=== PATIENT | female | born 1955 | race Caucasian/White ===

== ENCOUNTER 2017-09-27 14:08 | Outpatient (POV) | payer OTHER, SELFPAY | END 2017-09-27 16:00 | disposition home or self-care (01) | PROVIDERS: Visit Provider Podiatrist | DX: S92.335D Nondisplaced fracture of third metatarsal bone, left foot, subsequent encounter for fracture with routine healing (principal); S92.345D Nondisplaced fracture of fourth metatarsal bone, left foot, subsequent encounter for fracture with routine healing | CPT/HCPCS: 99213 ==

== ENCOUNTER → 2017-10-30 09:29 | Outpatient (CLI) | payer OTHER, SELFPAY ==
--- NOTE | 2017-10-30 09:43 | XR_ITS ---
XR foot LT min 3V HISTORY: ITS.REASON: LT. TARSOMETATARSAL LIGAMENT SPRAIN; NON-DISPLACED 3RD 4TH M ORDERING PHYSICIAN: Michelle Guido DPM PATIENT AGE: 62 years COMPARISON: None FINDINGS: Weightbearing views are performed. Nondisplaced fracture involving the base of the third metatarsal transverse in nature. Transverse fracture also present in the base of the fourth metatarsal with very minimal lateral displacement of the distal fracture fragment 1 to 2 mm unchanged. Fracture lines are somewhat less apparent suggesting early healing. The splint has been removed. IMPRESSION: Overall no change in the alignment of the transverse fractures of the base of the third fourth tarsals with early healing
--- NOTE | 2017-10-30 11:53 | XR_ITS ---
XR chest 2V HISTORY: ITS.REASON: HTN ORDERING PHYSICIAN: Michelle Guido DPM PATIENT AGE: 62 years COMPARISON: None available FINDINGS: There is borderline cardiomegaly without failure. There is increased density in the retrocardiac region consistent with a hiatal hernia which is larger when compared to 05/24/2009.. The lungs are clear without infiltrates, suspicious nodules, or pleural effusions. Degenerative change thoracic spine. IMPRESSION: 1. Borderline cardiomegaly without failure. 2. Medium-sized hiatal hernia
[2017-10-30 11:58] LABS: Basophils # 0.1 K/mm3 (0-0.2); Basophils % 0.7 % (0.1-2.0); Eosinophils # 0.4 K/mm3 (0.0-0.4); Eosinophils % 5.1 % (0.1-12.0); Hematocrit 42.2 % (37.0-47.0); Hemoglobin 13.7 g/dL (12.2-16.2); Lymphocytes # 1.7 K/mm3 (0.7-4.5); Lymphocytes % 24.2 K/mm3 (10-50); Mean Corpuscular HGB Conc 32.4 g/dL (31.8-35.4); Mean Corpuscular Hemoglobin 29.6 pg (27.0-31.2); Mean Corpuscular Volume 91.3 fl (81-99); Mean Platelet Volume 11.3 fl (7.4-10.4); Monocytes # 0.5 K/mm3 (0.1-1.0); Monocytes % 6.3 % (1.7-9.3); Neutrophils # 4.6 K/mm3 (1.8-7.8); Neutrophils % 63.7 % (37.0-80.0); Platelet Count 220 K/mm3 (142-424); Red Blood Count 4.62 M/mm3 (4.20-5.40); Red Cell Distribution Width 12.7 % (11.5-17.5); White Blood Count 7.2 K/mm3 (4.8-10.8)
[2017-10-30 13:56] LABS: Anion Gap 13.4 mEq/L (5-15); Blood Urea Nitrogen 15 mg/dL (7-18); Carbon Dioxide 30 mmol/L (21.0-32.0); Chloride 106 mmol/L (98-107); Creatinine,Serum 0.72 mg/dL (0.55-1.02); Estimated Glomerular Filt Rate 82 ml/min (>60); GFR (African American) 99 ML/MIN (>60); Glucose 92 mg/dL (74-106); Potassium 4.4 mmoL/L (3.5-5.1); Sodium 145 mmol/L (136-145)
[2017-11-02 17:11] LABS: Vitamin D 25 Hydroxy 21.8 ng/mL (30.0-100.0)
== END ==
PROVIDERS: PCP Podiatrist; Visit Provider Podiatrist
DX: S92.302A Fracture of unspecified metatarsal bone(s), left foot, initial encounter for closed fracture (principal); S93.622A Sprain of tarsometatarsal ligament of left foot, initial encounter
CPT/HCPCS: 36415; 71046; 73630; 80048; 82652; 85025; 93005

== ENCOUNTER 2017-11-02 07:06 | Day surgery (SDC) | payer OTHER, SELFPAY ==
[2017-11-02] VITALS (12 sets, daily range): BP systolic 128–152; BP diastolic 57–79; PULSE 64–72; RESP 12–20; TEMP 36.5–43; O2SAT 93–98; BMI 29.7
--- NOTE | 2017-11-02 08:34 | HMH.ANESCL ---
[facility] Anesthesia Checklist - Patient Identification Patient Identification: Arm Band, Verbal (Name & ) - Structural Data Admitted From: Home Planned Operative Procedure/s: repair left metatarsal fx 3 & 4 Consent for Planned Operative Procedure(s) Verified: Yes Verified Documents: Surgical Consent - NPO Status Verified Time NPO: 00:00 - Chart Verification Results Verified: CBC, BMP - Additional verifications Patient : No Anesthesia Reactions: No Hx Blood Transfusions: No Blood Transfusion Reaction: No - Cardiovascular Assessment Heart Sounds: S1 & S2 Pulse Strength: Baseline Pulse Rhythm: Regular Peripheral Edema: No - Airway Assessment C-Spine Mobility Assessed: Yes TMJ Mobility Assessed: Yes Dentition: Good Dentition - Neurological Assessment Level of Consciousness: Awake, Alert, Appropriate Hx Seizures: No Numbness or tingling in extremities: No - Anesthesia Plan Anesthesia Risk discussed: Yes ASA Class: III Anesthesia Type: MAC [facility] Anesthesia HX I have reviewed the patient's past medical history: Yes Medical History: Reports:: Hypertension Denies:: Cancer, Diabetes Mellitus Type 1, Diabetes Mellitus Type 2, MRSA, Seizures Other Medical History: Denies: Blood Transfusion Reaction Comment: cardiomegally, hld htn, bbb, anxiety, thyroid nodels, esophageal stricture Laterality Cases: Bilateral: Breast Biopsy Other Surgeries: No: Pacemaker Amputation: No Fractures: Yes (3rd and 4th metatarsal) Comment: lumpectomy x2 *Family Hx:: Coronary Artery Disease, Diabetes, Heart Attack, Hyperlipidemia, Hypertension, Kidney Disease, Stroke
--- NOTE | 2017-11-02 08:38 | P.PN_ITS ---
[facility] Anesthesia Checklist - Patient Identification Patient Identification: Arm Band, Verbal (Name & ) - Structural Data Admitted From: Home Planned Operative Procedure/s: repair left metatarsal fx 3 & 4 Consent for Planned Operative Procedure(s) Verified: Yes Verified Documents: Surgical Consent - NPO Status Verified Time NPO: 00:00 - Chart Verification Results Verified: CBC, BMP - Additional verifications Patient : No Anesthesia Reactions: No Hx Blood Transfusions: No Blood Transfusion Reaction: No - Cardiovascular Assessment Heart Sounds: S1 & S2 Pulse Strength: Baseline Pulse Rhythm: Regular Peripheral Edema: No - Airway Assessment C-Spine Mobility Assessed: Yes TMJ Mobility Assessed: Yes Dentition: Good Dentition - Neurological Assessment Level of Consciousness: Awake, Alert, Appropriate Hx Seizures: No Numbness or tingling in extremities: No - Anesthesia Plan Anesthesia Risk discussed: Yes ASA Class: III Anesthesia Type: MAC [facility] Anesthesia HX I have reviewed the patient's past medical history: Yes Medical History: Reports:: Hypertension Denies:: Cancer, Diabetes Mellitus Type 1, Diabetes Mellitus Type 2, MRSA, Seizures Other Medical History: Denies: Blood Transfusion Reaction Comment: cardiomegally, hld htn, bbb, anxiety, thyroid nodels, esophageal stricture Laterality Cases: Bilateral: Breast Biopsy Other Surgeries: No: Pacemaker Amputation: No Fractures: Yes (3rd and 4th metatarsal) Comment: lumpectomy x2 *Family Hx:: Coronary Artery Disease, Diabetes, Heart Attack, Hyperlipidemia, Hypertension, Kidney Disease, Stroke
--- NOTE | 2017-11-02 11:22 | SUR.OPER ---
PROCEDURE: ORIF 3RD AND 4TH METATARSALS LEFT FOOT
--- NOTE | 2017-11-02 12:16 | HMH.ANESI ---
[facility] Anesthesia Record Part I Intake, IV Amount: 1,400 Estimated blood loss (mL): 0 Urine output (mL): 0 Blood Pressure: 140/74 SaO2: 98 Pulse Rate: 66 Respiratory Rate: 12 Temperature: 98.2 F Patient is:: Awake, Drowsy Stable to PACU at:: 12:10
--- NOTE | 2017-11-02 12:17 | XR_ITS ---
XR foot LT min 3V HISTORY: Follow-up ORIF metatarsal fractures ITS.REASON: post-op ORDERING PHYSICIAN: Michelle Guido DPM PATIENT AGE: 62 years COMPARISON: None FINDINGS: 3 views are obtained through a splint demonstrate interval placement of a dorsal bone plates at the proximal aspect of the third and fourth metatarsal with good alignment of the fracture fragments.. Screw has been placed obliquely through the medial cuneiform into the base of the second metatarsal. There is good alignment of the second metatarsal tarsal joint. IMPRESSION: Interval ORIF of the fourth and third metatarsals. Medial Cuneiform and base of second metatarsal with good alignment
--- NOTE | 2017-11-02 12:18 | P.PN_ITS ---
[facility] Anesthesia Record Part II Discharge Time: 12:40 Destination: [facility] PACU nurse assessment reviewed?: Yes Patient Condition:: Good Anesthesia Complications:: None
--- NOTE | 2017-11-02 12:18 | HMH.ANESII ---
[facility] Anesthesia Record Part II Discharge Time: 12:40 [facility] nurse assessment reviewed?: Yes Patient Condition:: Good Anesthesia Complications:: None
--- NOTE | 2017-11-02 13:48 | FL_ITS ---
[place] fluoroscopy <1hr CLINICAL INDICATION: ITS.REASON: LT FOOT ORIF ORDERING PHYSICIAN: Michelle Guido DPM PATIENT AGE: 62 years Fluoroscopy time: 2 minutes and 38 seconds FINDINGS: Multiple images submitted with C-arm show interval dorsal bone plate placement at the proximal third and fourth metatarsal fractures as well as a screw placed from the medial aspect of the first cuneiform into the proximal aspect of the second metatarsal. IMPRESSION: Status post ORIF of the left foot as described above
--- NOTE | 2017-11-02 14:23 | SUR.PHASEII ---
PT HAD POLAR CARLTON AND LEG ELEVATED INSTRUCTED TO KEEP POLAR CARLTON ON AND LEG ELEVATED ABOVE HEART AT HOME ALICIA APPLIED TO RIGHT LEG AND INSTRUCTED TO KEEP TEDS ON UNTIL FOLLOW UP VISIT AND FURTHER INSTRUCTION FROM DR BIGGS. EXPLAINED USE AND REFILLING OF POLAR CARLTON. PT STATED SHE HAS CRUTCHES AND ROLLING CART AT HOME FOR AMBULATION AND NO WEIGHT BEARING OF LEFT LEG
--- NOTE | 2017-11-02 14:39 | HMH.OPNOTE ---
Date of procedure: 11/02/17 Pre-op Diagnosis:: Left LisFranc ligament sprain Left third metatarsal fracture Left fourth metatarsal fracture Post-op diagnosis:: same Procedure performed:: Open reduction internal fixation left Lisfranc ligament Open reduction internal fixation left third metatarsal Open reduction internal fixation left fourth metatarsal Surgeon:: Michelle Guido DPM [employer] OP[employer] INSTALLER:: Yaw Lawrence Anesthesia: GETA Estimated blood loss (mL): 20 Clinical Note:: Ms. Eddy is a 62 y/o female who presents for follow up of left foot fractures. She states she has been NWB in fiberglass cast and with the rolling the scooter. She does admit to tripped and falling on the left foot. Pain controlled. Patient presents with cast intact, but dirty and cracked at the bottom. DOI: 09/21/17. Patient states on 09/21/17 she was at home in the kitchen carrying dishes when she tripped over her cat. She did not fall down but did twist the foot. It hurts to bear weight immediately following the injury. She saw Dr. Bryan on 09/22/17. X-ray was obtained of the left foot and ankle. X-ray of the foot showed nondisplaced proximal third and fourth metatarsal fractures. He put her in a posterior splint. She has been NWB with crutches and a walker. She had an MRI which showed the proximal 3-4th met fractures, no complete LisFranc ligament tear. Reviewed and discussed the x-rays. Comparing the x-rays from 09/24/17 and 10/31/17, there is minimal healing and no change in overall alignment. We discussed causes for slow bone healing: non-smoker, non-diabetic, unsure of vitamin D level, age and bone density. Patients fiberglass cast was dirty and cracked on the bottom. We discussed risk and benefits of surgery vs conservative care. We discussed the risk of posttraumatic arthritis as well as refracturing and displacement of the tarsal metatarsals. 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 Indication: Conservative treatment discussed but not recommended. We discussed surgery. All risks and benefits were discussed including but not limited to: damage to blood vessels and nerves, bleeding, infection, wound complications, delayed in healing of soft tissue or bone, mal-union or non-union of bone, post-traumatic arthritis, need for further surgery, need for removal of implant, prolonged swelling of the extremity, prolonged pain, RSD/CRPS, DVT, and anesthetic complications. No guarantees were given. All questions fully answered. The patient verbalized understanding and agreed to proceed with surgery. Written consent was obtained. Discussed with Dr. Kc today. Medical clearance per Dr. Michelle. Necessary labs and pre-op testing ordered: CBC, BMP, EKG, CXR, vitamin D. CHERYL reviewed by myself. Pt was given a Rx for [place] 7.5/325 #28, Zofran 4mg #30, Motrin 800mg #60. Rx also given for Lovenox 40mg # 20 (she thinks her mother may have had a DVT), vitamin C 500mg daily, recommend daily vitamin D supplements. DME: has crutches and rolling knee scooter Plan surgery for: 11/02 for ORIF left 3-4th metatarsals, LisFranc ligament Operative findings:: Diastasis noted, some subtle widening of the Lisfranc ligament. 3-4th metatarsal fractures Operative note:: On this date and time patient was deemed an appropriate surgical candidate. With informed consent signed, the patient was taken to the operating theater after pre op regional femoral-saphenous nerve block. The patient was positioned supine. General anesthesia was induced. Tourniquet was applied to the right mid-calf at 225 mmHg. The right lower extremity was prepped and draped in normal sterile fashion. Left Open Reduction Internal Fixation LisFranc Joint (2nd met-medial cuneiform): Intraoperative fluoroscopy was utilized and the Lisfranc region was stressed under fluoroscopy. There was some diastases noted some subtle widening of the Lisfranc ligament. Attention was directed to the
--- NOTE | 2017-11-02 14:42 | P.OP_ITS ---
Date of procedure: 11/02/17 Pre-op Diagnosis:: Left LisFranc ligament sprain Left third metatarsal fracture Left fourth metatarsal fracture Post-op diagnosis:: same Procedure performed:: Open reduction internal fixation left Lisfranc ligament Open reduction internal fixation left third metatarsal Open reduction internal fixation left fourth metatarsal Surgeon:: Michelle Guido DPM CARDIAC CATH TECH:: Yaw Lawrence Anesthesia: GETA Estimated blood loss (mL): 20 Clinical Note:: Ms. Eddy is a 62 y/o female who presents for follow up of left foot fractures. She states she has been NWB in fiberglass cast and with the rolling the scooter. She does admit to tripped and falling on the left foot. Pain controlled. Patient presents with cast intact, but dirty and cracked at the bottom. DOI: 09/21/17. Patient states on 09/21/17 she was at home in the kitchen carrying dishes when she tripped over her cat. She did not fall down but did twist the foot. It hurts to bear weight immediately following the injury. She saw Dr. Bryan on 09/22/17. X-ray was obtained of the left foot and ankle. X-ray of the foot showed nondisplaced proximal third and fourth metatarsal fractures. He put her in a posterior splint. She has been NWB with crutches and a walker. She had an MRI which showed the proximal 3-4th met fractures, no complete LisFranc ligament tear. Reviewed and discussed the x-rays. Comparing the x-rays from 09/24/17 and 10/31/17 , there is minimal healing and no change in overall alignment. We discussed causes for slow bone healing: non-smoker, non-diabetic, unsure of vitamin D level, age and bone density. Patient?s fiberglass cast was dirty and cracked on the bottom. We discussed risk and benefits of surgery vs conservative care. We discussed the risk of posttraumatic arthritis as well as refracturing and displacement of the tarsal metatarsals. 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 Indication: Conservative treatment discussed but not recommended. We discussed surgery. All risks and benefits were discussed including but not limited to: damage to blood vessels and nerves, bleeding, infection, wound complications, delayed in healing of soft tissue or bone, mal-union or non-union of bone, post-traumatic arthritis, need for further surgery, need for removal of implant, prolonged swelling of the extremity, prolonged pain, RSD/CRPS, DVT, and anesthetic complications. No guarantees were given. All questions fully answered. The patient verbalized understanding and agreed to proceed with surgery. Written consent was obtained. Discussed with Dr. Kc today. Medical clearance per Dr. Michelle. Necessary labs and pre-op testing ordered: CBC, BMP, EKG, CXR, vitamin D. CHERYL reviewed by myself. Pt was given a Rx for [place] 7.5/325 #28, Zofran 4mg # 30, Motrin 800mg #60. Rx also given for Lovenox 40mg # 20 (she thinks her mother may have had a DVT), vitamin C 500mg daily, recommend daily vitamin D supplements. DME: has crutches and rolling knee scooter Plan surgery for: 11/02 for ORIF left 3-4th metatarsals, LisFranc ligament Operative findings:: Diastasis noted, some subtle widening of the Lisfranc ligament. 3-4th metatarsal fractures Operative note:: On this date and time patient was deemed an appropriate surgical candidate. With informed consent signed, the patient was taken to the operating theater after pre op regional femoral-saphenous nerve block. The patient was positioned supine. General anesthesia was induced. Tourniquet was applied to the right mid-calf at 225 mmHg. The right lower extremity was prepped and draped in normal sterile fashion. Left O
== END 2017-11-02 14:00 | disposition home or self-care (01) ==
PROVIDERS: PCP Family Medicine; Visit Provider Podiatrist
PROC: (CPT 28485; principal; 2017-11-02 08:45)
DX: S92.345A Nondisplaced fracture of fourth metatarsal bone, left foot, initial encounter for closed fracture (principal); S92.335A Nondisplaced fracture of third metatarsal bone, left foot, initial encounter for closed fracture; S93.692A Other sprain of left foot, initial encounter; S93.325A Dislocation of tarsometatarsal joint of left foot, initial encounter
CPT/HCPCS: 28485 ×2; 28615; 73620; 73630; 76000; 96374; C1713; C1762; C1776; J2405

== ENCOUNTER → 2017-11-19 10:19 | Outpatient (CLI) | payer OTHER, SELFPAY ==
--- NOTE | 2017-11-19 | XR_ITS ---
XR foot LT min 3V Ordering Physician: Michelle Guido DPM Patient Age: 62 years: Female HISTORY: ITS.REASON: WB..POST OP 2 WEEKS..FX LT FOOTR 2 weeks postop. Fracture TECHNIQUE: 3 views left foot COMPARISON :11/02/2017 left foot 3 view FINDINGS: 3 views are obtained through a posterior plaster splint. Again note the dorsal bone plate secured by multiple small screws seen along the proximal aspect of the third and fourth metatarsals. Stable position of the fixation elements. Good alignment at the fracture fragments.. Screw placedobliquely through the medial cuneiform continuing into the base of the second metatarsal appears. With good alignment of the second metatarsal tarsal joint. Stabilized relationship between first and second metatarsal IMPRESSION: . 1. Stable ORIF of the proximal fourth and third metatarsals. 2. Also Oblique Screws from Medial Cuneiform through the base of second metatarsal with stable position and good alignment. 3 Posterior plaster splint remains IMPRESSION:
== END ==
PROVIDERS: Visit Provider Podiatrist
DX: Z48.89 Encounter for other specified surgical aftercare (principal)
CPT/HCPCS: 73630

== ENCOUNTER → 2017-12-03 08:09 | Outpatient (CLI) | payer OTHER, SELFPAY | PROVIDERS: Visit Provider Podiatrist | DX: Z98.890 Other specified postprocedural states (principal); S93.622D Sprain of tarsometatarsal ligament of left foot, subsequent encounter; S92.335D Nondisplaced fracture of third metatarsal bone, left foot, subsequent encounter for fracture with routine healing ==

== ENCOUNTER → 2017-12-03 09:16 | Outpatient (CLI) | payer OTHER, SELFPAY ==
--- NOTE | 2017-12-03 | XR_ITS ---
XR foot wt bearing LT 2V HISTORY: Follow-up ORIF ORDERING PHYSICIAN: Michelle Guido DPM PATIENT AGE: 62 years COMPARISON: 11/19/2018 FINDINGS: The cast has been removed. There remains good alignment with bone plate over the proximal shaft of the fourth and fifth metatarsals and an oblique screw through the medial cuneiform into the base of the second metatarsal with good alignment. No evidence of widening of the base between the base of the first and second metatarsals fracture lines at the base of the third and fourth metatarsals are less apparent consistent with healing. IMPRESSION: Status post ORIF with good alignment with healing fractures at the base of the fourth and third metatarsals
== END ==
PROVIDERS: Visit Provider Podiatrist
DX: Z98.890 Other specified postprocedural states (principal)
CPT/HCPCS: 73620

== ENCOUNTER → 2017-12-17 09:27 | Outpatient (CLI) | payer OTHER, SELFPAY ==
--- NOTE | 2017-12-17 | XR_ITS ---
XR foot LT min 3V, Ordering Physician: Michelle Guido DPM Patient Age: 62 years: Female HISTORY: ITS.REASON: POST OP 6 WEEKS..PALTES AND SCREWS..PAIN AND SWELLING TECHNIQUE: Left foot 3 views weightbearing Right foot: 3 view weightbearing COMPARISON :11/19/2017 left foot ==LEFT FOOT 3 views weightbearing . Cast is been removed since prior study.. Again note the dorsal bone plate secured by multiple small screws seen along the proximal aspect of the third and fourth metatarsals. Stable position of thefixation elements. Good alignment at the fracture sites. Screw placedobliquely through the medial cuneiform continuing into the base of the second metatarsal. Stable position. Subtle lucency about the screw distal screw most likely stable.. With good alignment of the second metatarsaltarsal joint. & Stabilized relationship between first and second metatarsal. There is some subtle lucency at the lateral base and corner of the first metatarsal tarsal oblique view but less evident on the frontal projection. Most likely stable. Mild degenerative changes suspect the first tarsal-metatarsal joint IMPRESSION: .1. Stable ORIF of the proximal fourth and third metatarsals. 2. Also Oblique Screws from Medial Cuneiform through the base of second metatarsal with stable position and good alignment. Subtle minor observations as in text 3. Plaster splint/cast removed
== END ==
PROVIDERS: Visit Provider Podiatrist
DX: Z98.890 Other specified postprocedural states (principal)
CPT/HCPCS: 73630

== ENCOUNTER → 2018-01-21 09:04 | Outpatient (CLI) | payer OTHER, SELFPAY ==
--- NOTE | 2018-01-21 09:05 | XR_ITS ---
XR foot wt bearing LT 3V Ordering Physician: Michelle Guido DPM Patient Age: 62 years: Female HISTORY: Left foot pain. Pain with weightbearing. Follow-up fracture. TECHNIQUE 3 view left foot COMPARISON :12/17/2017. & December 03, 2017 FINDINGS Again note the dorsal bone platessecured by multiple small screws seen along theproximal aspect of the third and fourth metatarsals. Stable position of theseefixation elements. Good alignment at the fracture sites. Screw placedobliquely through the medial cuneiform continuing into the base of the second metatarsal. Stable position. Subtle lucency about the screw distal screw most likely stable.. With good alignment of the second metatarsaltarsal joint. Stabilized relationship between first and second metatarsal. There is some subtle lucency at the lateral base and corner of the first metatarsal tarsal oblique view but less evident on the frontal projection again noted. Stable to perhaps slightly more apparent Mild degenerative changes suspect the first tarsal-metatarsal joint IMPRESSION: .1. Stable ORIF of the proximal fourth and third metatarsals. 2. Also Oblique Screws from Medial Cuneiform through the base of second metatarsal with stable position and good alignment. 3. Question subtle lucency, subtle rarefaction along the lateral base the first metatarsal which appears similar to slightly more evident on today's oblique view. Warrants ongoing follow-up
== END ==
PROVIDERS: PCP Family Medicine; Visit Provider Podiatrist
DX: Z98.890 Other specified postprocedural states (principal); M79.672 Pain in left foot
CPT/HCPCS: 73630

== ENCOUNTER → 2019-11-17 09:09 | Outpatient (CLI) | payer MEDICARE, SELFPAY ==
--- NOTE | 2019-11-17 09:15 | MM_ITS ---
PROCEDURE: MM DIG SCREENING MAMM BI with 3D tomosynthesis CLINICAL INDICATION: SCREENING COMPARISON: BC MAMM DIAG BILAT DIG PNL from 10/29/2007 AB MAMM SCREEN BILAT DIG PNL from 02/14/2010 DMSB DIG MAMM-SCREEN MING from 11/29/2015 TECHNIQUE: Standard CC and MLO images were obtained. With 3D tomosynthesis. FINDINGS: There is average fibroglandular tissue. There is 5 mm nodular opacity in the lateral aspect of the right breast. This appears slightly more apparent but is probably not significantly changed. Recommend six-month follow-up to confirm stability. No malignant appearing mass or malignant-appearing microcalcification. There are scattered benign-appearing calcifications noted. IMPRESSION: BI-RAD Category: 3 Probably Benign Finding Short Term Follow-up FOLLOW-UP: 6M 6Month Follow-up (A letter has been sent to the patient regarding results of the study.) Dictated by: Hugo Perdue MD 11/17/2019 11:18 Electronically signed by Hugo Perdue MD in [place] 11/17/2019 11:18
== END ==
PROVIDERS: PCP Family Medicine; Visit Provider Family Medicine
DX: Z12.31 Encounter for screening mammogram for malignant neoplasm of breast (principal)
CPT/HCPCS: 77063; 77067

== ENCOUNTER → 2019-12-09 12:24 | Outpatient (POV) | payer MEDICARE, SELFPAY | PROVIDERS: PCP Family Medicine; Visit Provider Dermatology | DX: Z00.00 Encounter for general adult medical examination without abnormal findings (principal) ==

== ENCOUNTER → 2020-06-07 12:38 | Outpatient (CLI) | payer MEDICARE, SELFPAY ==
--- NOTE | 2020-06-07 12:50 | MM_ITS ---
PROCEDURE: MM DIG MAMM DX UNILAT RT CAD Digital Breast Tomosynthesis Included CLINICAL INDICATION: 6 MONTH F/U Follow-up nodule COMPARISON: MG AB MAMM SCREEN BILAT DIG PNL from 02/14/2010 MG DMSB DIG MAMM-SCREEN MING from 11/29/2015 MG MM DIG SCREENING MAMM BI W/CAD from 11/17/2019 US US BREAST RT COMPLETE from 06/07/2020 TECHNIQUE: Standard CC and MLO images and 3D Tomosynthesis was obtained. R2 CAD reviewed. FINDINGS: There is average fibroglandular tissue. There remains a benign-appearing nodular density in the lateral aspect of the right breast which does not appear significantly changed. This measures approximately 6 mm. No malignant appearing mass. There is a small cluster of microcalcifications in the lateral aspect of the right breast which is probably benign and probably not significantly changed. Suggest continued six-month follow-up. Ultrasound the right breast: 2 mm complex cystic area at 1 o'clock. No solid lesions evident. Recommend resuming screening in October 2020 IMPRESSION: Probably benign findings. Recommend continued six-month follow-up bilaterally to put patient back on schedule and to confirm 1 year stability of the nodule and calcifications on the right BI-RAD Category: 3 Probably Benign Finding Short Term Follow-up FOLLOW-UP: 6M 6Month Follow-up (A letter has been sent to the patient regarding results of the study.) Dictated by: Hugo Perdue MD 06/15/2020 10:41 Hugo Perdue MD in [place] 06/15/2020 10:41
== END ==
PROVIDERS: PCP Family Medicine; Visit Provider Family Medicine
DX: R92.8 Other abnormal and inconclusive findings on diagnostic imaging of breast (principal)
CPT/HCPCS: 76641; 77061; 77065; G0279

== ENCOUNTER → 2020-09-28 09:16 | Outpatient (POV) | payer MEDICARE, SELFPAY ==
[2020-09-28 10:55] LABS: Basophils # 0.1 K/mm3 (0-0.2); Eosinophils # 0.3 K/mm3 (0.0-0.4); Eosinophils % 3.6 % (0.1-12.0); Hematocrit 46.5 % (37.0-47.0); Hemoglobin 15.3 g/dL (12.2-16.2); Lymphocytes # 2.1 K/mm3 (0.7-4.5); Lymphocytes % 26.1 % (10-50); Mean Corpuscular Hemoglobin 30.8 pg (27.0-31.2); Mean Corpuscular Volume 93.4 fl (81-99); Mean Platelet Volume 11.5 fl (7.4-10.4); Monocytes # 0.5 K/mm3 (0.1-1.0); Monocytes % 5.9 % (1.7-9.3); Neutrophils % 63.3 % (37.0-80.0); Platelet Count 220 K/mm3 (142-424); Red Blood Count 4.97 M/mm3 (4.20-5.40); Red Cell Distribution Width 13.4 % (11.5-17.5); White Blood Count 7.8 K/mm3 (4.8-10.8)
[2020-09-28 11:31] LABS: Chloride 101 mmol/L (98-107); Potassium 3.7 mmoL/L (3.5-5.1); Sodium 138 mmol/L (136-145)
[2020-09-28 11:34] LABS: Alanine Aminotransferase 36 U/L (12-78); Albumin Level 4.7 g/dl (3.5-5.0); Albumin/Globulin Ratio 1.7 (1.1-1.8); Alkaline Phosphatase 90 U/L (38-126); Anion Gap 9.7 mEq/L (5-15); Aspartate Amino Transferase 35 U/L (14-36); Bilirubin,Total 0.8 mg/dl (0.2-1.3); Blood Urea Nitrogen 20 mg/dl (7-17); Calcium 9.4 mg/dl (8.4-10.2); Carbon Dioxide 31 mmol/L (22.0-30.0); Estimated Glomerular Filt Rate 62 ml/min (>60); GFR (African American) 76 ML/MIN (>60); Globulin 2.8 g/dL (1.3-3.2); Glucose 98 mg/dl (74-100); Total Protein,Serum 7.5 g/dl (6.3-8.2)
[2020-09-29 13:18] LABS: Hep A Ab, IgM Negative (Negative); Hepatitis B Core Antibody IgM Negative (Negative); Hepatitis B Surface Antigen Negative (Negative)
[2020-09-29 15:47] LABS: Hepatitis C Antibody <0.1 s/co ratio (0.0-0.9)
[2020-10-01 09:43] LABS: QuantiFERON-TB Gold Plus Negative (Negative)
== END ==
PROVIDERS: PCP Family Medicine; Visit Provider Dermatology
DX: Z79.899 Other long term (current) drug therapy; Z11.1 Encounter for screening for respiratory tuberculosis; Z01.89 Encounter for other specified special examinations; L40.0 Psoriasis vulgaris
CPT/HCPCS: 36415; 80053; 80074; 85025; 86480

== ENCOUNTER → 2021-02-07 10:20 | Outpatient (CLI) | payer MEDICARE, SELFPAY ==
--- NOTE | 2021-02-07 10:29 | MM_ITS ---
PROCEDURE: MM DIG SCREENING MAMM BI W/CAD Digital Breast Tomosynthesis Included CLINICAL INDICATION: SCREENING There is a history of breast cancer in the patient's paternal cousin. There has been a previous biopsy on each breast for benign disease. COMPARISON: MG DMSB DIG MAMM-SCREEN MING from 11/29/2015 MG MM DIG SCREENING MAMM BI W/CAD from 11/17/2019 MG MM DIG MAMM DX UNILAT RT CAD from 06/07/2020 TECHNIQUE: Standard CC and MLO images and 3D Tomosynthesis was obtained. R2 CAD reviewed. FINDINGS: Moderate diffuse fibroglandular densities seen throughout both breast the findings are bilateral and symmetrical. There is a mole marker each breast. No suspicious lesion either breast and no suspicious microcalcifications IMPRESSION: Fibrofatty parenchyma with no suspicious lesions seen BI-RAD Category: 2 Benign Finding(s) FOLLOW-UP: 1YR 1 Year Follow-up (A letter has been sent to the patient regarding results of the study.) Dictated by: Dr. Helder Keith MD 02/08/2021 08:06 Dr. Helder Keith MD in [place] 02/08/2021 08:06
== END ==
PROVIDERS: PCP Family Medicine; Visit Provider Family Medicine
DX: Z12.31 Encounter for screening mammogram for malignant neoplasm of breast (principal)
CPT/HCPCS: 77063; 77067

== ENCOUNTER → 2021-09-26 11:33 | Outpatient (CLI) | payer MEDICARE, SELFPAY ==
[2021-09-26 13:02] LABS: Adenovirus,PCR Not Detected (NotDetected); Bordetella Pertussis Not Detected (NotDetected); Chlamydophila Pneumoniae, PCR Not Detected (NotDetected); Coronavirus 229E Not Detected (NotDetected); Coronavirus NL63 Not Detected (NotDetected); Coronavirus OC43 Not Detected (NotDetected); Coronovirus HKU1,PCR Not Detected (NotDetected); Human Metapneumovirus Not Detected (NotDetected); Influenza A, PCR Not Detected (NotDetected); Influenza AH1, 2009 Not Detected (NotDetected); Influenza AH1, PCR Not Detected (NotDetected); Influenza AH3,PCR Not Detected (NotDetected); Influenza B, PCR Not Detected (NotDetected); Mycoplasma Pneumoniae, PCR Not Detected (NotDetected); Parainfluenza 1, PCR Not Detected (NotDetected); Parainfluenza 2, PCR Not Detected (NotDetected); Parainfluenza 3, PCR Not Detected (NotDetected); Parainfluenza 4, PCR Not Detected (NotDetected); Respiratory Syncytial Virus Not Detected (NotDetected); Rhinovirus/Enterovirus Not Detected (NotDetected)
[2021-09-26 13:49] LABS: Eosinophils % 0.5 % (0.1-12.0); Hematocrit 41.1 % (37.0-47.0); Hemoglobin 13.8 g/dL (12.2-16.2); Lymphocytes # 1.1 K/mm3 (0.7-4.5); Lymphocytes % 26.1 % (10-50); Mean Corpuscular HGB Conc 33.6 g/dL (31.8-35.4); Mean Corpuscular Hemoglobin 31.1 pg (27.0-31.2); Mean Corpuscular Volume 92.4 fl (81-99); Mean Platelet Volume 12.4 fl (7.4-10.4); Monocytes # 0.5 K/mm3 (0.1-1.0); Monocytes % 11.4 % (1.7-9.3); Neutrophils # 2.7 K/mm3 (1.8-7.8); Neutrophils % 61.1 % (37.0-80.0); Platelet Count 172 K/mm3 (142-424); Red Blood Count 4.44 M/mm3 (4.20-5.40); Red Cell Distribution Width 13.1 % (11.5-17.5); White Blood Count 4.4 K/mm3 (4.8-10.8)
[2021-09-26 14:46] LABS: Coronavirus 19, PCR Detected (NotDetected)
== END ==
PROVIDERS: PCP Family Medicine; Visit Provider Nurse Practitioner Family
DX: U07.1 COVID-19 (principal)
CPT/HCPCS: 36415; 85025; 87581; 87632; 87798; C9803; U0003; U0005

== ENCOUNTER 2021-09-30 07:50 | Outpatient (CLI) | payer MEDICARE, SELFPAY ==
[2021-09-30] VITALS (8 sets, daily range): BP systolic 103–119; BP diastolic 50–62; PULSE 67–75; RESP 16; TEMP 36.8–36.9; O2SAT 91–95
== END 2021-09-30 10:25 | disposition home or self-care (01) ==
LOC: INF 07:53
PROVIDERS: PCP Family Medicine; Visit Provider Nurse Practitioner Family
DX: U07.1 COVID-19 (principal); Z23 Encounter for immunization
CPT/HCPCS: 96365

== ENCOUNTER → 2022-04-04 09:26 | Outpatient (CLI) | payer MEDICARE, SELFPAY ==
--- NOTE | 2022-04-04 09:32 | MM_ITS ---
PROCEDURE INFORMATION: Exam: MG Bilateral Screening 3D Mammography Exam date and time: 04/04/2022 9:49 AM Age: 66 years old Clinical indication: Screening examination TECHNIQUE: Imaging protocol: Bilateral Screening tomosynthesis and 2D mammography including computer-aided detection (CAD) when performed. COMPARISON: 1. MG MM DIG SCREENING MAMM BI W/CAD 02/07/2021 10:43 AM 2. MG MM DIG MAMM DX UNILAT RT CAD 06/07/2020 1:06 PM FINDINGS: MAMMOGRAPHY: Breast composition: There are scattered areas of fibroglandular density. Mass: None. Architectural distortion: None. Calcifications: No suspicious calcifications. Asymmetric density: None. Skin thickening: None. Axillary adenopathy: None. IMPRESSION: No mammographic evidence of malignancy. Annual screening is recommended unless otherwise clinically indicated. ASSESSMENT: BI-RADS Category 1: Negative
== END ==
PROVIDERS: PCP Family Medicine; Visit Provider Family Medicine
DX: Z12.31 Encounter for screening mammogram for malignant neoplasm of breast (principal)
CPT/HCPCS: 77063; 77067

== ENCOUNTER → 2023-05-29 08:07 | Outpatient (CLI) | payer MEDICARE, SELFPAY ==
--- NOTE | 2023-05-29 08:15 | MM_ITS ---
PROCEDURE INFORMATION: Exam: MG Bilateral Screening 3D Mammography Exam date and time: 05/29/2023 8:16 AM Age: 67 years old Clinical indication: Screening mammogram. Family history of breast cancer TECHNIQUE: Imaging protocol: Bilateral Screening tomosynthesis and 2D mammography including computer-aided detection (CAD) when performed. COMPARISON: 1. MG MM DIG SCREENING MAMM BI W/CAD 04/04/2022 9:49 AM 2. MG MM DIG SCREENING MAMM BI W/CAD 02/07/2021 10:43 AM 3. MG MM DIG MAMM DX UNILAT RT CAD 06/07/2020 1:06 PM 4. MG MM DIG SCREENING MAMM BI W/CAD 11/17/2019 9:50 AM FINDINGS: MAMMOGRAPHY: Breast composition: There are scattered areas of fibroglandular density. Mass: None. Architectural distortion: No new or suspicious architectural distortion. Calcifications: No new or suspicious calcifications are present Asymmetric density: No new or suspicious asymmetric density is present Skin thickening: None. Axillary adenopathy: None. IMPRESSION: No mammographic evidence of malignancy. Recommend annual screening mammography unless otherwise clinically indicated. ASSESSMENT: BI-RADS category 1: Negative
--- NOTE | 2023-05-29 08:50 | XR_ITS ---
FINAL REPORT TECHNIQUE: Bone mineral density was calculated of the lumbar spine and hip. CLINICAL HISTORY: . post menopausal screening, osteopenia FINDINGS: Using L1-4, the bone mineral density of the spine is 1.104 g/cm2, corresponding to T-score of 0.5. Using the left hip, the bone mineral density of the femoral neck is 0.764 g/cm2, corresponding to a T-score of -1.5. Using the right hip, the bone mineral density of the femoral neck is 0.734 g/cm2, corresponding to a T-score of -1.0. NOTE: T-score: Standard deviation compared with peak bone mass of young adult mean. *Following the recommendations of the International Society of Bone densitometry, classification of hip BMD is based on the lower of two T-scores; total hip or femoral neck. IMPRESSION: Diminished bone mineral density consistent with low bone density. FRAX data reports fracture risk of 14% for major osteoporotic fracture and 2% for hip fracture. Reviewed, Interpreted and Dictated by Nikko Angulo III, MD Transcribed by Christin Kiran Authenticated and [facility]
== END ==
PROVIDERS: PCP Family Medicine; Visit Provider Family Medicine
DX: Z12.31 Encounter for screening mammogram for malignant neoplasm of breast (principal); M85.89 Other specified disorders of bone density and structure, multiple sites; Z78.0 Asymptomatic menopausal state
CPT/HCPCS: 77063; 77067; 77080

== ENCOUNTER 2024-07-23 10:04 | Outpatient (CLI) | payer MEDICARE, SELFPAY ==
--- NOTE | 2024-07-23 10:06 | MM_ITS ---
PROCEDURE INFORMATION: Exam: MG Bilateral Screening 3D Mammography Exam date and time: 07/23/2024 9:52 AM Age: 68 years old Clinical indication: Screening examination TECHNIQUE: Imaging protocol: Bilateral Screening tomosynthesis and 2D mammography including computer-aided detection (CAD) when performed. COMPARISON: 1. MG MM DIG SCREENING MAMM BI W/CAD 05/29/2023 8:16 AM 2. MG MM DIG SCREENING MAMM BI W/CAD 04/04/2022 9:49 AM FINDINGS: MAMMOGRAPHY: Breast composition: There are scattered areas of fibroglandular density. Mass: No suspicious masses. Architectural distortion: None. Calcifications: No suspicious calcifications. Asymmetric density: None. Skin thickening: None. Axillary adenopathy: None. IMPRESSION: No mammographic evidence of malignancy. Annual screening is recommended unless otherwise clinically indicated. ASSESSMENT: BI-RADS Category 1: Negative.
== END 2024-07-23 23:59 | disposition home or self-care (01) ==
LOC: RAD 10:04
PROVIDERS: PCP Family Medicine; Visit Provider Family Medicine
DX: Z12.31 Encounter for screening mammogram for malignant neoplasm of breast (principal)
CPT/HCPCS: 77063; 77067

== ENCOUNTER 2024-09-23 09:10 | Outpatient (POV) | payer MEDICARE, SELFPAY | END 2024-09-23 23:59 | disposition home or self-care (01) | LOC: SC 09-24 06:54 | PROVIDERS: Visit Provider Dermatology | DX: Z00.00 Encounter for general adult medical examination without abnormal findings (principal) ==

== ENCOUNTER 2024-12-30 10:23 | Outpatient (CLI) | payer MEDICARE, SELFPAY ==
--- NOTE | 2024-12-30 | CA_ITS ---
APPROVED REPORT Exam: Exercise Treadmill Technologist: Collette Diaz Ht: 5 ft 6 in Wt: 192 lbs BSA: 1.97 m2 HR: 74 bpm BP: 146/69 mmHg Stress Test Details Test: Exercise stress testing was performed using a Nahtaniel protocol. HR Resting HR: 74 bpm Max Heart Rate (APMHR): 149.934014 bpm Max HR Achieved: 104 bpm Target HR (85% APMHR): 126.173044 bpm % of APMHR: 69.80 Recovery HR: 80 bpm BP Resting BP: 146.0/69.0 mmHg Max BP: 158.0/70.0 mmHg Recovery BP: 142.0/69.0 mmHg ECG Stress ECG Conclusion Symptoms: Fatigue, dyspnea Arrhythmias/Ectopy: - ST-T Changes: 1-2 mm depression Conclusion: Abnormal EKG response to exercise. Electronically signed by : Nancy Chavez MD 01/04/2025 20:46:26
== END 2024-12-30 23:59 | disposition home or self-care (01) ==
LOC: RT 10:23
PROVIDERS: PCP Family Medicine; Visit Provider Family Medicine
DX: R07.89 Other chest pain (principal); R94.39 Abnormal result of other cardiovascular function study
CPT/HCPCS: 93017; 93018

== ENCOUNTER 2025-02-10 11:12 | Outpatient (CLI) | payer MEDICARE, SELFPAY ==
[2025-02-10 11:30] VITALS: BP 131/68; PULSE 76; RESP 17; TEMP 36.6; O2SAT 98
[2025-02-10 11:51] VITALS: BMI 30.9
[2025-02-10] MEDS: METOPROLOL TARTRATE 25MG TABLET 50 MG (11:53)
[2025-02-10] MEDS: IVABRADINE HCL 7.5MG TABLET 15 MG PO (11:53)
[2025-02-10 12:02] LABS: Anion Gap 10.6 mEq/L (5-15); Blood Urea Nitrogen 30 mg/dl (7-17); Carbon Dioxide 25 mmol/L (22.0-30.0); Chloride 109 mmol/L (98-107); Creatinine Clearance Estimated 51 mL/min (50-200); Estimated Glomerular Filt Rate 37 ml/min (>60); GFR (African American) 45 ML/MIN (>60); Glucose 105 mg/dl (74-100); Potassium 4.6 mmoL/L (3.5-5.1); Sodium 140 mmol/L (136-145)
[2025-02-10] MEDS: LACTATED RINGERS 1000ML 1,000 ML 999 ML IV (12:30)
--- NOTE | 2025-02-10 13:00 | CT_ITS ---
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 A noncontrast coronary calcium scan was performed. A CT attenuation threshold of 130 Hounsfield units (HU) was used for the detection of calcium in contiguous voxels of 1 sq mm in area to be counted as individual lesions. Bolus tracking in the ascending aorta with a threshold of 180 HU was performed. Immediately afterwards, ECG synchronized cardiac CT was then performed from the cardiac base to apex using retrospective gating with ECG tube current modulation. A total of 85 mL of Isovue 370 mg/mL contrast medium was administered at 5 mL/sec followed by a saline flush using a biphasic injection protocol. A tube voltage of 120 KVp was used. The patient received the following medications prior to the cardiac CT. 50 mg of oral metoprolol 5 mg of intravenous metoprolol 15 mg of oral ivabradine 0.4 mg of sublingual nitroglycerin The average heart rate at the time of acquisition was 133 bpm and regular. Image Reconstruction Transaxial images were reconstructed at 0.67 mm slide thickness. Data was reviewed interactively on an advanced workstation capable of 2 and 3-dimensional displays in all conventional reconstruction formats, including multiplanar reformations, maximum intensity projections, curved multiplanar reformations, and volume rendered reconstructions. When applicable, selected routine images describing the relevant coronary anatomy and pathology were saved and sent to PACS. Complications None Technical Quality Overall image quality was inadequate and non-diagnostic in the setting of elevated HR. Coronary artery opacification was inadequate Total DLP (Dose-Length Product) is 2269.4 mGy-cm. The reported value represents the total of one or more individual components during the CT acquisition of this date and at this time, and as such, the same value may appear in more than one CT report depending on the interpreting/reporting physicians. COMPARISON None FINDINGS CT Coronary Calcium Scoring LMA (Left Main Artery) = 0 LAD (Left Anterior Descending) = 0 LCX (Left Coronary Circumflex) = 0 RCA (Right Coronary Artery) = 0 Total Calcium Score = 0 using the AJ-130 method. The interpretation of the calcium heart score is based on the following continuum*: 0 = no calcified plaque detected (risk of coronary artery disease is very low ??? less than 5%) 1-10 = calcium detected in extremely minimal levels (risk of coronary diseases is still low ??? less than 10%) 11-100 = mild levels of plaque detected with certainty (mild or minimal narrowing of heart arteries is likely) 101-400 = definite,at least moderate levels of plaque detected (relatively high risk of a heart attack within 3-5 years) >401-999 = extensive levels of plaque detected (high risk of heart attack, high levels of vascular disease are present, high likelihood of at least one significant coronary narrowing) *The calcium heart score quantifies the burden of coronary calcification/plaque in the coronary arteries. The calcium heart score is not able to evaluate the presence or burden of non-calcified (i.e. soft) plaque. There is no identifiable calcification in the aortic valve, mitral annulus or mitral valve, pericardium, or myocardium. Coronary CT Angiography The coronary arterial system is right dominant. Quantitative Stenosis Grading: Left Main (LM): The left main originates normally from the left sinus of Valsalva. The LM bifurcates into the left anterior descending artery and left circumflex artery. Significant motion is noted in the LM segment, with difficult to visualize the vessel lumen. Grossly, no obvious plaque is noted. Left Anterior Descending (LAD) and Diagonal Branches: The LAD gives off an indeterminate number of diagonal branch(es). Significant motion is noted in the LAD segment, with difficult to visualize the vessel lumen. Grossly, no obvious plaque is noted. Left Circumflex (LCX) and Obtuse Marginals (OM): The LCX gives off an indeterminate number of obtuse Marginal (OM) branch(es). Significant motion is noted in the LCX segment, with difficult to visualize the vessel lumen. Grossly, no obvious plaque is noted. Right Coronary Artery (RCA): The RCA originates normally from the right sinus of Valsalva. The RCA gives off a posterior descending artery (PDA) and posterolateral (PL) branches. The RCA is not well-visualized in the study due to significant motion. Non-Coronary Cardiac Findings: Analysis of the left ventricular (LV) structure and function was performed after 3-D reconstruction of the LV from axial images, with user-corrected automatic contouring for assessment of LV volumes and user-defined reconstruction from oblique planes for measurement of 3-D cardiac structure and function. -The left ventricle systolic function is indeterminate. -There is no left atrial appendage filling defect. Two right pulmonary veins and two left pulmonary veins drain normally into the left atrium. -No pericardial thickening or calcification. -Central and branch pulmonary arteries in the [id number] are unremarkable. -Thoracic aorta within the visualized thoracic aortic-branches in the [id number] is unremarkable. Extracardiac Structures -Large hiatal hernia is incidentally noted. IMPRESSION -Inadequate and suboptimal study in the setting of elevated HR at the time of image acquisition (HR 133 bpm). This study is to be considered nondiagnostic in the setting of inability to visualize multiple vascular territories. - Absence of coronary calcification with an Agatston score = 0 using the AJ-130 method. -Difficult to visualize multiple vascular territories in the study. Grossly, no evidence of significant flow-limiting atherosclerosis of the coronary arteries in the visualized segments. If clinically indicated and feasible, alternative testing is suggested to evaluate for ischemia. -CAD-RADS indeterminate. Management recommendations per ACC/AHA guidelines*, as clinically appropriate. -Large hiatal hernia is incidentally noted. *Recommendations: CAD RADS 0: Reassurance. Consider non-atherosclerotic causes of chest pain. CAD RADS 1: Consider non-atherosclerotic causes of chest pain. Consider preventive therapy and risk factor modification. CAD RADS 2: Consider non-atherosclerotic causes of chest pain. Consider preventive therapy and risk factor modification, particularly for patients with nonobstructive plaque in multiple segments. CAD RADS 3: Consider further functional testing. Consider symptom-guided anti-ischemic and preventive pharmacotherapy as well as risk factor modification per published guideline statements. CAD RADS 4A: Consider further functional testing or invasive coronary angiography with revascularization per published guideline statements. Consider symptom-guided anti-ischemic and preventive pharmacotherapy as well as risk factor modification per published guideline statements. CAD RADS 4B: Invasive coronary angiography recommended with revascularization per published guideline statements. Consider symptom-guided anti-ischemic and preventive pharmacotherapy as well as risk factor modification per published guideline statements. CAD RADS 5: Consider invasive angiography and/or viability assessment with revascularization per published guideline statements. Consider symptom-guided anti-ischemic and preventive pharmacotherapy as well as risk factor modification per published guideline statements. CRITICAL RESULT None COMMUNICATION Per this written report The coronary and cardiac findings of this CCTA were reviewed, reported, and signed by Tony Chavez MD (Sheetmetal Patternmaker) Conclusion Electronically signed by : Nancy Chavez MD 02/11/2025 13:19:18
[2025-02-10] MEDS: NITROGLYCERIN 0.4MG SL TABLET 0.4 MG SL (13:15)
[2025-02-10 13:20] VITALS: BP 150/81; PULSE 73; O2SAT 99
[2025-02-10] MEDS: METOPROLOL TARTRATE 5MG/5ML VIAL 5 MG IV (13:20)
[2025-02-10 13:30] VITALS: BP 137/70; PULSE 73; O2SAT 98
[2025-02-10] MEDS: SODIUM CHLORIDE 0.9% 10ML SYR (RAD ONLY) 10 ML IV (13:32)
[2025-02-10] MEDS: IOPAMIDOL-370 (76%);100ML BOTTLE 85 ML IV (13:32)
[2025-02-10] MEDS: 0.9 % SODIUM CHLORIDE 50 ML VIAL IV (13:32)
[2025-02-10 13:40] VITALS: BP 133/68; PULSE 73; O2SAT 98
== END 2025-02-10 13:54 | disposition home or self-care (01) ==
LOC: RAD 11:13
PROVIDERS: PCP Family Medicine; Visit Provider Nurse Practitioner Family
DX: R94.30 Abnormal result of cardiovascular function study, unspecified (principal); Z82.49 Family history of ischemic heart disease and other diseases of the circulatory system; R94.31 Abnormal electrocardiogram [ECG] [EKG]
CPT/HCPCS: 75574; 80048; J7120; Q9967

== ENCOUNTER 2025-07-28 09:41 | Outpatient (CLI) | payer MEDICARE, SELFPAY ==
--- OUTSIDE RECORDS SUMMARY | 2024-09-15 06:00 | XMS_ITS ---
Author Organization [facility] Address [address] [facility] [address] [place], [place] [id number] Care Team Providers Care Refresh Technician Name Role Phone Kevin Grijalva Primary Care Provider Allergies No Known Allergies Results Component Value Reference Range Notes P-Comprehensive Metabolic Pa baljinder (CMP) Reviewed date:09/17/2024 10:04:26 AM Interpretation:satisfactory Performing Lab: Notes/Report: Test performed by [facility] [address] [place], [place] [address] [place] , [address], [place] [address] Dixon Cruz MD, Pantograph Transferrer CLIA: [id number] Sodium 143 135-145 mmol/L Potassium 4.5 3.5-5.3 mmol/L Chloride 109 97-108 mmol/L CO2 24 22-32 mmol/L Glucose 98 65-99 mg/dL BUN 19 8-23 mg/dL Creatinine 0.99 0.50-1.00 mg/dL Calcium 9.0 8.6-10.4 mg/dL eGFR by Creatinine 61 >59 mL/min/1.73m2 Protein 6.5 6.0-8.3 g/dL Albumin 4.4 3.5-5.3 g/dL Alkaline Phosphatase 86 35-121 IU/L ALT (SGPT) 10 <5-47 IU/L AST (SGOT) 13 <5-40 IU/L Bilirubin, Total 0.5 <0.2-1.2 mg/dL A/G Ratio 2.1 1.1-2.5 P-Lipid Panel Reviewed date:09/17/2024 10:04:26 AM Interpretation:Normal Performing Lab: Notes/Report: Test performed by [facility] [address] [facility] [address], [place] [address] Dixon Cruz MD, Pantograph Transferrer CLIA: [id number] Cholesterol 155 <200 mg/dL Triglycerides 133 <150 mg/dL HDL Cholesterol 63 >39 mg/dL Cholesterol / HDL Ratio 2.46 0.00-4.44 Ratio Non-HDL Cholesterol 92 <130 mg/dL LDL Cholesterol (Calculation) 65 <130 mg/dL LDL Cholesterol Levels* Less than 100 mg/dL Optimal 100 to 129 mg/dL Near Optimal/ Above Optimal 130 to 159 mg/dL Borderline High 160 to 189 mg/dL High 190 mg/dL and above Very High * Categories as recommended by the 2004 ATPIII guidelines LDL/HDL Ratio 1.0 <3.3 Ratio LDL Cholesterol Patient History Test Date: 03/14/2024 LDL Results: 59 Units: mg/dL % Change: - Test Date: 09/15/2024 LDL Results: 65 Units: mg/dL % Change: +10% REASON FOR VISIT 6 months, Needs labs, colon cancer screening, & flu vaccine Medications Medication SIG (Take, Route, Frequency, Duration) Notes Start Date End Date Status Atenolol 100 MG 1 tab(s) orally once a day; Duration: 90 days 11/05/2015 Active Evista 60 MG 1 tablet Orally Once a day; Duration: 90 days 06/20/2023 Active Omeprazole 40 MG 1 cap(s) orally once a day; Duration: 90 days 05/10/2022 Active Fluticasone Propionate 50 MCG/ACT as directed in each nostril once a day; Duration: 30 day(s) 12/21/2021 Not-Taking amLODIPine Besylate 10 MG 1 tab(s) orall y once a day; Duration: 90 days 09/13/2022 Active Ondansetron HCl 4 MG 1 tab(s) orally tid prn prn Active LORazepam 0.5 MG 1 tab(s) orally 3 ti mes a day as needed; Duration: 30 day(s) 01/30/2024 Active Sulindac 200 MG 1 tablet with food Orally Twice a day; Duration: 90 days 11/12/2023 Active Rosuvastatin Calcium 10 MG 1 tab(s) orally once a day; Duration: 90 days Active Vitamin D3 25 MCG (1000 UT) 1 capsule Orally Once a day; Duration: 30 day(s) Active Zinc 50 MG 1 tab(s) orally once a day; Duration: 30 day(s) Active Lisinopril-hydroCHLOROthi azide 20-25 MG 1 tablet Orally Once a day; Duration: 90 days 09/15/2024 Active Problems Problem Type SNOMED Code ICD Code Onset Dates Problem Status W/U Status Risk Notes Problem Pure hypercholesterolemia (026374607) Pure hypercholesterolemia (E78.00) Active confirmed Vital Signs Blood pressure systolic 140 mm Hg 09/15/20 24 Blood pressure diastolic 80 mm Hg 024 Heart Rate 64 /min 09/15/2024 Height 67 in 09/15/2024 Weight 192.0 lbs 09/15/2024 BMI 30.07 kg/m2 09/15/2024 Encounters Encounter Location Date Provider Diagnosis [facility] [address] [facility] [address] [place], [place] [id number] 09/15/2024 Kevin Grijalva Essential hypertensi on I10 ; Pure hypercholesterolemia E78.0 and Pure hypercholesterolemia E78.00 Assessments Encounter Date Diagnosis (ICD Code) Assessment Notes Treatment Notes Treatment Clinical Notes Section Notes 09/15/2024 Essential hypertensi on (ICD-10 - I10) 09/15/2024 Pure hypercholesterolemia (ICD-10 - E78.0) 09/15/2024 Pure hypercholesterolemia (ICD-10 - E78.00) Plan Of Treatment Medication Medication Name Sig Start Date Stop Date Notes Lisinopril-hydroCHLOROthiazi de 20-12.5 MG 1 tab(s) orally once a day; Duration: 90 days 12/21/2021 Lisinopril-hydroCHLOROthiazi de 20-25 MG 1 tablet Orally Once a day; Duration: 90 days 09/15/2024 Next Appt Details Follow Up: 3 Months, Reason: Provider Name:Kevin An , 09/07/2025 10:15:00 AM, [address] [facility] [address] [facility], [address], [place], [place], [id number], Progress Notes * JAVED TAYLOR RodriguezOB:1954 (70 yo F)Acc No.[id number]:09/15/2024 Progress Notes Patient: TAYLOR ESCOTO Provider: Kevin Grijalva M.D. :1955 A ge:69 Y S ex:Female Date:09/15/2024 Address:[address] [place] [address], [id number] Subjective: * Chief Complaints: * 1 . 6 months. 2. Needs labs, colon cancer screening, & flu vaccine. * HPI: C ardiology: The patient is here for a check up on Hypertension and Hyperlipidemia. Pt states she is doing good and denies any new concerns today except for some swelling in her ankles by the end of the day. Pt states the right is usually worse than the left. Pt states the swelling is usually better in the morning and get worse through out the day. Pt states she is fasting. Denies : Chest Pain. D enies : Short of Breath. D enies : Dizziness. D enies : Palpitations. * ROS: D ERMATOLOGY: no R airam. n o H micha. G ASTROENTEROLOGY: no N ausea. n o V omiting. n o D iarrhea.? U ROLOGY: no D ifficulty urinating. n o B lood in urine. * Medical History: G ERD, Hiatal hernia, Esophageal stricture, COVID 19 Vaccine J&J, 01/22/21, COVID 19 Booster J&J, 08/27/21, COVID 19 infection, Sep 2021. * Surgical History: b reast surgery x2 , Tooth extraction , Cologuard - Negative December 2020. * Family History: F ather: alive, HTN. M other: 58 yrs, [place]. P aternal Grand Father: .?Paternal Grand Mother: unknown 97 yrs. M aternal Grand Father: . M aternal Grand Mother: . 2 brother(s) . . * Social History: C URRENT TOBACCO USE S moking Status: Patient does NOT smoke. C affeine: no. Exercise: yes. Home smoke detector use: no. Marital Status: Single. New since last visit: none. Past smoking status: no, Smoking status: Does not smoke. Recreational drug use: no. Alcohol: socially, Type: , Frequency: ,Years: , Determination:. Sexually active: no.. * Medications: T aking Vitamin D3 25 MCG (1000 UT) Capsule 1 capsule Orally Once a day , Taking Zinc 50 MG Tablet 1 tab(s) orally once a day , Taking Ondansetron HCl 4 MG Tablet 1 tab(s) orally tid prn , Notes to Pharmacist: prn, Taking LORazepam 0.5 MG Tablet 1 tab(s) orally 3 times a day as needed , Taking Sulindac 200 MG Tablet 1 tablet with food Orally Twice a day , Taking Rosuvastatin Calcium 10 MG Tablet 1 tab(s) orally once a day , Taking amLODIPine Besylate 10 MG Tablet 1 tab(s) orally once a day , Taking Atenolol 100 MG Tablet 1 tab(s) orally once a day , Taking Lisinopril-hydroCHLOROthiazide 20-12.5 MG Tablet 1 tab(s) orally once a day , Taking Evista 60 MG Tablet 1 tablet Orally Once a day , Taking Omeprazole 40 MG Capsule Delayed Release 1 cap(s) orally once a day , Not-Taking Fluticasone Propionate 50 MCG/ACT Suspension as directed in each nostril once a day , Medication List reviewed and reconciled with the patient * Allergies: N .K.D.A. Objective: * Vitals: W t:192.0, Temp:98.0, BP:140/80, HR:64, Nurse:VLADIMIR, Ht: 67, Repeat BP:140/68, BMI:30.07. * Examination: G eneral Examination: General Appearance: N AD. H EENT: T M's normal, left may be slightly dull, but she is asymptomatic. O ral cavity: n o lesions, mucosa moist and WNL, no erythema. N sachin: s upple, no lymphadenopathy. C hest: n ormal shape and expansion. H eart: R SR. L ungs: c lear to auscultation. A bdomen: soft and nontender, no organomegaly or masses. N eurologic Exam: I ntact, gait normal. S kin:?normal, no rash. P eripheral pulses: n ormal . B ack: normal, mild dorsal kyphosis. E xtremities: n o leg edema. Assessment: * Assessment: 1. E ssential hypertension - I10 (Primary) 2 . P ure hypercholesterolemia - E78.0 3 . P ure hypercholesterolemia - E78.00 Plan: * Treatment: Value Reference Range A /G Ratio 2.1 1.1-2.5 - * A lbumin 4.4 3.5-5.3 - g/dL * A lkaline Phosphatase 86 35-121 - IU/L * A LT (SGPT) 10 <5-47 - IU/L * A ST (SGOT) 13 <5-40 - IU/L * B ilirubin, Total 0.5 <0.2-1.2 - mg/dL * B UN 19 8-23 - mg/dL * C alcium 9.0 8.6-10.4 - mg/dL * C hloride 109 H 97-108 - mmol/L * C O2 24 22-32 - mmol/L * C reatinine 0.99 0.50-1.00 - mg/dL * G lucose 98 65-99 - mg/dL * P otassium 4.5 3.5-5.3 - mmol/L * S odium 143 135-145 - mmol/L * P rotein 6.5 6.0-8.3 - g/dL * e GFR by Creatinine 61 >59 - mL/min/1.73m2 * Nelda Garcia 09/17/2024 10 :04:06 AM >Patient informed of normal results. 2.?Pure hypercholesterolemia?LAB: P-Lipid Panel (Collection Date & Time - 09/15/2024 08:55 AM)?Normal* Value Reference Range C holesterol / HDL Ratio 2.46 0.00-4.44 - Ratio * C holesterol 155 <200 - mg/dL * H DL Cholesterol 63 >39 - mg/dL * L DL Cholesterol (Calculation) 65 <130 - mg/d L * L DL/HDL Ratio 1.0 <3.3 - Ratio * N on-HDL Cholesterol 92 <130 - mg/dL * T riglycerides 133 <150 - mg/dL * Nelda Garcia 09/17/2024 10 :04:06 AM >Patient informed of normal results. * Procedure Codes: G 2211 Complex e/m visit add on * Follow Up: 3 Months * Images: Billing Information: * Visit Code: 06071 Office Visit, Est Pt., Level 4. * Procedure Codes: G2211 Complex e/m visit add on. * Electronic signature of Kevin Grijalva MD on 07/28/2025 at 09:46 AM EDT Sign off status: Pending * Provider: Kevin Grijalva M.D. Date: 11/15/2023 Generated for Lorin reveles/Marck/Johnitting on: 09:46 AM EDT History and Physical Notes * HPI (History of Present Illness) Category Sub-Category Detail Notes Category Not es Cardiology Short of Breath Chest Pain Palpitations Dizziness Examination Category Sub-Category Detail Notes Category Not es General Examination HEENT: TM's normal, left may be slightly dull, but she is asymptomatic Heart: RSR Lungs: clear to auscultatio n Abdomen: soft and nontender, no organomegaly or masses Extremities: no leg edema General Appearance: NAD Skin: normal, no rash Neurologic Exam: Intact, gait normal Neck: supple, no lymphaden opathy Oral cavity: no lesions, mucosa m oist and WNL, no erythema Peripheral pulses: normal Back: normal, mild dorsal kyphosis Chest: normal shape and exp ansion
--- OUTSIDE RECORDS SUMMARY | 2024-12-22 05:45 | XMS_ITS ---
[facility] Organization [facility] Address [address] [facility] [address] [facility] [address] [place] [address] [place] [id number] Care Team Providers Care Team Assistant Name Role Phone Kevin Grijalva Primary Care Provider [phone] Allergies No Known Allergies Results Component Value Reference Range Notes Cologuard Reviewed date:01/16/2025 09:05:57 AM Interpretation:Negative Performing Lab: Notes/Report: Negative Cologuard Negative Cardiac Stress Test Exercise Routine Reviewed date:01/16/2025 05:41:09 PM Interpretation:Abnormal Performing Lab: Notes/Report: Abnormal REASON FOR VISIT 3 Month Follow Up, Needs bone density screening & colopn cancer screening Medications Medication SIG (Take, Route, Frequency, Duration) Notes Start Date End Date Status Atenolol 100 MG 1 tab(s) orally once a day; Duration: 90 days 11/05/2015 Active Evista 60 MG 1 tablet Orally Once a day; Duration: 90 days 06/20/2023 Active Omeprazole 40 MG 1 cap(s) orally once a day; Duration: 90 days 05/10/2022 Active LORazepam 0.5 MG 1 tab(s) orally 3 ti mes a day as needed; Duration: 30 day(s) 10/23/2024 Active Fluticasone Propionate 50 MCG/ACT as directed in each nostril once a day; Duration: 30 day(s) 12/21/2021 Not-Taking amLODIPine Besylate 10 MG 1 tab(s) orall y once a day; Duration: 90 days 09/13/2022 Active Sulindac 200 MG 1 tablet with food Orally Twice a day; Duration: 30 day(s) 11/12/2023 Active Vitamin D3 25 MCG (1000 UT) 1 capsule Orally Once a day; Duration: 30 day(s) Active Zinc 50 MG 1 tab(s) orally once a day; Duration: 30 day(s) Active Ondansetron HCl 4 MG 1 tab(s) orally tid prn prn Active Lisinopril-hydroCHLOROthi azide 20-25 MG 1 tablet Orally Once a day; Duration: 90 days 09/15/2024 Active Rosuvastatin Calcium 10 MG 1 tab(s) orally once a day; Duration: 90 days Active Vital Signs Blood pressure systolic 144 mm Hg 12/23/19 25 Blood pressure diastolic 78 mm Hg 025 Heart Rate 72 /min 12/22/2024 Height 67 in 12/22/2024 Weight 192.4 lbs 12/22/2024 BMI 30.13 kg/m2 12/22/2024 Encounters Encounter Location Date Provider Diagnosis [facility] [address] [place] [id number] 12/22/2024 Kevin Grijalva Essential hypertensi on I10 ; 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 ; Other chest pain R07.89 and Screen for colon cancer Z12.11 Assessments Encounter Date Diagnosis (ICD Code) Assessment Notes Treatment Notes Treatment Clinical Notes Section Notes 12/22/2024 Essential hypertension (ICD-10 - I10) 12/22/2024 Guttate psoriasis (ICD-10 - L40.4) 12/22/2024 Other chest pain (ICD-10 - R07.89) 12/22/2024 Screen for colon cancer (ICD-10 - Z12.11) Plan Of Treatment Next Appt Details Follow Up: 5 months, Reason: Provider Name:Kevin An er, 09/07/2025 10:15:00 AM, [address], [address], [place], [place], [id number], Progress Notes * TAYLOR BURTOB:1954 (70 yo F)Acc No.[id number]:12/22/2024 Progress Notes Patient: TAYLOR ESCOTO Provider: Kevin Grijalva M.D. :1955 A ge:69 Y S ex:Female Date:12/22/2024 Address:[address], [place], [id number] Subjective: * Chief Complaints: * 1 . 3 Month Follow Up. 2. Needs bone density screening & colopn cancer screening. * HPI: C ardiology: The patient is here for a check up on Hypertension and Hyperlipidemia. Pt states she doing good and denies any new concerns. Pt states she had an increased in Lisinopril/HCTZ and the swelling is doing better. Pt is not fasting. Denies : Chest Pain. D enies [...] ather: alive, HTN. M other: 58 yrs, [place]. P aternal Grand Father: .?Paternal Grand Mother: [...] Sexually active: no.. * Medications: T aking Lisinopril-hydroCHLOROthiazide 20-25 MG Tablet 1 tablet Orally Once a day , Taking Rosuvastatin Calcium 10 MG Tablet 1 tab(s) orally once a day , Taking Sulindac 200 MG Tablet 1 tablet with food Orally Twice a day , Taking Vitamin D3 25 MCG (1000 UT) Capsule 1 capsule Orally Once a day , Taking Zinc 50 MG Tablet 1 tab(s) orally once a day , Taking Ondansetron HCl 4 MG Tablet 1 tab(s) orally tid prn , Notes to Pharmacist: prn, Taking amLODIPine Besylate 10 MG Tablet 1 tab(s) orally once a day , Taking Atenolol 100 MG Tablet 1 tab(s) orally once a day , Taking Evista 60 MG Tablet 1 tablet Orally Once a day , Taking Omeprazole 40 MG Capsule Delayed Release 1 cap(s) orally once a day , Taking LORazepam 0.5 MG Tablet 1 tab(s) orally 3 times a day as needed , Not-Taking Fluticasone Propionate 50 MCG/ACT Suspension as directed in each nostril once a day , Medication List reviewed and reconciled with the patient * Allergies: N .K.D.A. Objective: * Vitals: W t:192.4, Temp:97.8, BP:144/78, HR:72, Nurse:VLADIMIR, Ht: 67, BMI:30.13. * Examination: G eneral Examination: General Appearance: N AD. H EENT: u nremarkable.?Oral cavity: n o lesions, mucosa moist and WNL, no erythema. N sachin: s upple, no lymphadenopathy. C hest: n ormal shape and expansion. H eart: R SR. L ungs: c lear to auscultation. A bdomen: soft and nontender, no organomegaly or masses. N eurologic Exam: I ntact, gait normal. S kin: n ormal, no rash. P eripheral pulses: n ormal . B ack: normal, mild dorsal kyphosis. E xtremities: n o leg edema. Assessment: * Assessment: 1. E ssential hypertension - I10 (Primary) 2 . G uttate psoriasis - L40.4? 3. O ther chest pain - R07.89 4 . S creen for colon cancer - Z12.11 Plan: * Treatment: 2.?Screen for colon cancer?LAB: [facility]dy (Collection Date & Time - 01/03/2025)?Negative* Value Reference Range Rod evans Negative * Loly Vuong 12/23/2024 4:59: 10 PM > faxed Loly Boyd 01/16/2025 09:05:46 AM > pt informed of results * Procedure Codes: G 2211 Complex e/m visit add on, 3077F SYST BP = 140 MM HG6 IT, 3078F DIAST BP < 80 MM HG * Follow Up: 5 months * Images: Billing Information: * Visit Code: 17140 Office Visit, Est Pt., Level 3. * Procedure Codes: G2211 Complex e/m visit add on. 3077F SYST BP = 140 MM HG6 IT. 3078F DIAST BP < 80 MM HG. * Electronic signature of Kevin Grijalva MD on 07/28/2025 at 09:45 AM EDT Sign off status: Pending * Provider: Kevin Grijalva M.D. Date: 0 12/22/2024 Generated for Yeyoi abdirizak/Marck/eTransmitting on: 1 09:45 AM EDT History and Physical Notes * HPI (History of Present Illness) Category Sub-Category Detail Notes Category Not es Cardiology Short of Breath Chest Pain Palpitations Dizziness Examination Category Sub-Category Detail Notes Category Not es General Examination HEENT: unremarkable Heart: RSR Lungs: clear to auscultatio n [...]
--- OUTSIDE RECORDS SUMMARY | 2025-05-25 06:15 | XMS_ITS ---
[facility] Address [address] [facility] [address] [place], [place] [id number] Care Team Providers Care Advanced Analytics Associate Name Role Phone Kevin Grijalva Primary Care Provider [phone] Allergies No Known Allergies Results Component Value Reference Range Notes P-Comprehensive Metabolic Pa baljinder (CMP) Reviewed date:05/26/2025 10:27:04 AM Interpretation:bun 25, Cr 1.15, gfr 51 Performing Lab: Notes/Report: Test performed by [facility], [address] , [address], [place] [address] Dixon Cruz MD, Internet Marketing Strategist CLIA: [id number] Sodium 142 135-145 mmol/L Potassium 4.7 3.5-5.3 mmol/L Chloride 108 97-108 mmol/L CO2 23 20-32 mmol/L Glucose 96 65-99 mg/dL BUN 25 8-23 mg/dL Creatinine 1.15 0.50-1.00 mg/dL Calcium 9.3 8.6-10.4 mg/dL eGFR by Creatinine 51 >59 mL/min/1.73m2 Protein 6.9 6.0-8.3 g/dL Albumin 4.3 3.5-5.3 g/dL Alkaline Phosphatase 79 35-121 IU/L ALT (SGPT) 13 <5-47 IU/L AST (SGOT) 13 <5-40 IU/L Bilirubin, Total 0.5 <0.2-1.2 mg/dL A/G Ratio 1.7 1.1-2.5 REASON FOR VISIT check up, Needs labs, bone density screening, & Prevnar vaccine Medications Medication SIG (Take, Route, Frequency, Duration) Notes Start Date End Date Status Fluticasone Propionate 50 MCG/ACT as directed in each nostril once a day; Duration: 30 day(s) 12/21/2021 Not-Taking Aspirin 81 81 MG 1 tablet Orally Once a day Active Zinc 50 MG 1 tab(s) orally once a day; Duration: 30 day(s) Not-Taking Atenolol 100 MG 1 tab(s) orally once a day; Duration: 90 days 11/05/2015 Active Rosuvastatin Calcium 10 MG 1 tab(s) orally once a day; Duration: 90 days Active Lisinopril-hydroCHLOROthi azide 20-25 MG 1 tablet Orally Once a day; Duration: 90 days 09/15/2024 Active Evista 60 MG 1 tablet Orally Once a day; Duration: 90 days 06/20/2023 Active Omeprazole 40 MG 1 cap(s) orally once a day; Duration: 90 days 05/10/2022 Active amLODIPine Besylate 10 MG 1 tab(s) orall y once a day; Duration: 90 days 09/13/2022 Active Sulindac 200 mg TAKE 1 TABLET by robson twice a day with food; Duration: 30 days Active LORazepam 0.5 MG 1 tab(s) orally 3 ti mes a day as needed; Duration: 30 day(s) 10/23/2024 Active Ondansetron HCl 4 MG 1 tab(s) orally tid prn prn Active Vitamin D3 25 MCG (1000 UT) 1 capsule Orally Once a day; Duration: 30 day(s) Active Vital Signs Blood pressure systolic 132 mm Hg 05/25/20 25 Blood pressure diastolic 76 mm Hg 025 Heart Rate 70 /min 05/25/2025 Height 67 in 05/25/2025 Weight 185.4 lbs 05/25/2025 BMI 29.03 kg/m2 05/25/2025 Encounters Encounter Location Date Provider Diagnosis [place] [address] [facility] [address], [place] [id number] 05/25/2025 Kevin Grijalva Essential hypertensi on I10 ; 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 ; Chronic GERD K21.9 ; Hiatal hernia K44.9 ; BMI 29.0-29.9,adult Z68.29 ; Pure hypercholesterolemia E78.00 and Lumbar back pain M54.50 Assessments Encounter Date Diagnosis (ICD Code) Assessment Notes Treatment Notes Treatment Clinical Notes Section Notes 05/25/2025 Essential hypertensi on (ICD-10 - I10) 05/25/2025 Guttate psoriasis (ICD-10 - L40.4) 05/25/2025 Chronic GERD (ICD-10 - K21.9) 05/25/2025 Hiatal hernia (ICD-1 0 - K44.9) 05/25/2025 BMI 29.0-29.9,adult (ICD-10 - Z68.29) 05/25/2025 Pure hypercholesterolemia (ICD-10 - E78.00) 05/25/2025 Lumbar back pain (IC D-10 - M54.50) Plan Of Treatment Next Appt Details Follow Up: 3 Months, Reason: Provider Name:Kevin An er, 09/07/2025 10:15:00 AM, [address] [facility], [address] [place] [address], [phone], Progress Notes * JAVEDTAYLOROB:1954 (70 yo F)Acc No.[id number]:05/25/2025 Progress Notes Patient: TAYLOR ESCOTO Provider: Kevin Grijalva M.D. :1955 A ge:69 Y S ex:Female Date:05/25/2025 Address:[address] [place] [id number] Subjective: * Chief Complaints: * 1 . Check up. 2. Needs labs, bone density screening, & Prevnar vaccine. * HPI: C ardiology: The pt is here for a check-up on Hypertension and Hyperlipidemia and for review of Cardiac studies.? Abnormal Myoview , nondiagnostic CCTA. Has follow-up next week with Radha Stephens APRN. Pt states she is doing good and denies any new concerns. Pt is fasting. Denies : Chest Pain. D [...] ather: alive, HTN. M other: 58 yrs, [place]. P aternal Grand Father: .?Paternal Grand Mother: [...] Sexually active: no.. * Medications: T aking Aspirin 81 81 MG Tablet Delayed Release 1 tablet Orally Once a day , Taking Vitamin D3 25 MCG (1000 UT) Capsule 1 capsule Orally Once a day , Taking Ondansetron HCl 4 MG Tablet 1 tab(s) orally tid prn , Notes to Pharmacist: prn, Taking LORazepam 0.5 MG Tablet 1 tab(s) orally 3 times a day as needed , Taking amLODIPine Besylate 10 MG Tablet 1 tab(s) orally once a day , Taking Omeprazole 40 MG Capsule Delayed Release 1 cap(s) orally once a day , Taking Evista 60 MG Tablet 1 tablet Orally Once a day , Taking Lisinopril-hydroCHLOROthiazide 20-25 MG Tablet 1 tablet Orally Once a day , Taking Sulindac 200 mg Tablet TAKE 1 TABLET by mouth twice a day with food , Taking Rosuvastatin Calcium 10 MG Tablet 1 tab(s) orally once a day , Taking Atenolol 100 MG Tablet 1 tab(s) orally once a day , Not-Taking Zinc 50 MG Tablet 1 tab(s) orally once a day , Not-Taking Fluticasone Propionate 50 MCG/ACT Suspension as directed in each nostril once a day , Medication List reviewed and reconciled with the patient * Allergies: N .K.D.A. Objective: * Vitals: W t: 185.4, Temp: 98.3, BP: 132/76, HR: 70, Nurse: VLADIMIR, Ht: 67, BMI:29.03. * Examination: G eneral Examination: General Appearance: [...] . G uttate psoriasis - L40.4? 3. C hronic GERD - K21.9 4 . H iatal hernia - K44.9 ? 5 . B IA 29.0-29.9,adult - Z68.29 6 . P ure hypercholesterolemia - E78.00 7 . L umbar back pain - M54.50 Plan: * Treatment: Value Reference Range A /G Ratio 1.7 1.1-2.5 - * A lbumin 4.3 3.5-5.3 - g/dL * A lkaline Phosphatase 79 35-121 - IU/L * A LT (SGPT) 13 <5-47 - IU/L * A ST (SGOT) 13 <5-40 - IU/L * B ilirubin, Total 0.5 <0.2-1.2 - mg/dL * B UN 25 H 8-23 - mg/dL * C alcium 9.3 8.6-10.4 - mg/dL * C hloride 108 97-108 - mmol/L * C O2 23 20-32 - mmol/L * C reatinine 1.15 H 0.50-1.00 - mg/dL * G lucose 96 65-99 - mg/dL * P otassium 4.7 3.5-5.3 - mmol/L * S odium 142 135-145 - mmol/L * P rotein 6.9 6.0-8.3 - g/dL * e GFR by Creatinine 51 L >59 - mL/min/1.73m2 * Laney Caruso 05/26/2025 10:26 :59 AM EDT > See phone encounter * Procedure Codes: G 2211 Complex e/m visit add on, 1036F TOBACCO NON-USER, G8420 BMI<30 AND >=22 CALC & DOCU, G8950 PREHTN/HTN BP DOC INDCD F/U DOC, G8752 MOST RECENT SYSTOLIC BP < 140MM HG, G8754 MOST RECENT DIASTOLIC BP < 90MM HG * Follow Up: 3 Months * Images: Billing Information: * Visit Code: 70131 Office Visit, Est Pt., Level 4. * Procedure Codes: G2211 Complex e/m visit add on. 1036F TOBACCO NON-USER. G8420 BMI<30 AND >=22 CALC & DOCU. G8950 PREHTN/HTN BP DOC INDCD F/U DOC. G8752 MOST RECENT SYSTOLIC BP < 140MM HG. G8754 MOST RECENT DIASTOLIC BP < 90MM HG. * Electronic signature of Kevin Grijalva MD on 07/28/2025 at 09:46 AM EDT Sign off status: Pending * Provider: Kevin Grijalva M.D. Date: 0 05/25/2025 Generated for Lorin reveles/Marck/eTransmitting on: 09:46 AM EDT History and Physical [...]
--- OUTSIDE RECORDS SUMMARY | 2025-06-01 07:18 | XMS_ITS ---
Author Organization [facility] Address [address] [place] [address] [address] [place], [place] [id number] Care Team Providers Care Rn Clinical Documentation Specialist Name Role Phone Kevin Grijalva Primary Care Provider REASON FOR VISIT due col,dexa,adrienne Encounters Encounter Location Date Provider Diagnosis [facility] [address] [place], [place] [id number] 06/01/2025 Kevin Grijalva Encounter for screen ing for osteoporosis Z13.820 and Encounter for screening for malignant neoplasm of breast Z12.31 Assessments Encounter Date Diagnosis (ICD Code) Assessment Notes Treatment Notes Treatment Clinical Notes Section Notes 06/01/2025 Encounter for screening for osteoporosis (ICD-10 - Z13.820) 06/01/2025 Encounter for screening for malignant neoplasm of breast (ICD-10 - Z12.31) Plan Of Treatment Pending Test Test Name Order Date Mammogram 06/01/2025 Next Appt Details Provider Name:Kevin An er, 09/07/2025 10:15:00 AM, [address] [facility] [address] [facility], [address], [place], [place], [phone], Progress Notes * TAYLOR BURT MichaelOB:1954 (69 yo F)Acc No.[id number]:06/01/2025 Patient: TAYLOR ESCOTO :1955 A ge:69 Y S ex:Female Address:[address], [place] [address] Subjective: * Chief Complaints: * D ue col,dexa,adrienne * Medical History: * Surgical History: * Hospitalization/Major Diagno stic Procedure: * Medications: Objective: * Vitals: * Physical Examination: Assessment: * Assessment: 1. E ncounter for screening for osteoporosis - Z13.820 (Primary) 2 . E ncounter for screening for malignant neoplasm of breast - Z12.31 Plan: * Treatment: 2.?Encounter for screening for malignant neoplasm of breast?Imaging: Mammogram* Evelin Somers 06/02/2025 01:4 1:50 PM EDT >Patient due after 07/03. schedule with [facility]. sent to [facility] for referral * Procedure Codes: * true * Date: Generated for Lorin reveles/Marck/Johnitting on: 09:46 AM EDT
--- NOTE | 2025-07-28 09:44 | MM_ITS ---
PROCEDURE INFORMATION: Exam: MG Bilateral Screening 3D Mammography Exam date and time: 07/28/2025 9:43 AM Age: 70 years old Clinical indication: Screening examination. A paternal cousin had breast cancer. TECHNIQUE: Imaging protocol: Bilateral Screening tomosynthesis and 2D mammography including computer-aided detection (CAD) when performed. COMPARISON: 1. MG MM DIG SCREENING MAMM BI W/CAD 07/23/2024 9:52 AM 2. MG MM DIG SCREENING MAMM BI W/CAD 05/29/2023 8:16 AM 3. MG MM DIG SCREENING MAMM BI W/CAD 04/04/2022 9:49 AM 4. MG MM DIG SCREENING MAMM BI W/CAD 02/07/2021 10:43 AM FINDINGS: MAMMOGRAPHY: Breast composition: There are scattered areas of fibroglandular density. Mass: None. Architectural distortion: None. Calcifications: No suspicious calcifications. Asymmetric density: No developing asymmetry. Skin thickening: None. Axillary adenopathy: None. IMPRESSION: No mammographic evidence of malignancy. Annual screening is recommended unless otherwise clinically indicated. ASSESSMENT: BI-RADS Category 1: Negative.
--- OUTSIDE RECORDS SUMMARY | 2025-07-28 09:46 | XMS_ITS | Patient Health Record ---
[facility] [address] [facility] [address] [facility] [address] [place] [id number] Care Team Providers Care Management Rep Name Role Phone Kevin Grijalva Primary Care Provider Allergies No Known Allergies Results Component Value Reference Range Notes Cologuard Reviewed date:01/16/2025 09:05:57 AM Interpretation:Negative Performing Lab: Notes/Report: Negative Cologuard Negative Cardiac Stress Test Exercise Routine Reviewed date:01/16/2025 05:41:09 PM Interpretation:Abnormal Performing Lab: Notes/Report: Abnormal P-Comprehensive Metabolic Pa baljinder (CMP) Reviewed date:05/26/2025 10:27:04 AM Interpretation:bun 25, Cr 1.15, gfr 51 Performing Lab: Notes/Report: CLIA: [id number] Dixon Cruz MD, Dealer Relationship Manager [address] [facility] , [address], [place] [address] Test performed by [employer], [employer] Sodium 142 135-145 mmol/L Potassium 4.7 3.5-5.3 [...] 0.5 <0.2-1.2 mg/dL A/G Ratio 1.7 1.1-2.5 P-Comprehensive Metabolic Pa baljinder (CMP) Reviewed date:09/17/2024 10:04:26 AM Interpretation:satisfactory Performing Lab: Notes/Report: CLIA: [id number] Dixon Cruz MD, Dealer Relationship Manager [address] [place] [address] , [address], [place] [address] Test performed by [employer] Sodium 143 135-145 mmol/L Potassium 4.5 3.5-5.3 [...] Interpretation:Normal Performing Lab: Notes/Report: Test performed by [employer] [address] [place] [address] , [address], [place] [id number] Dixon Cruz MD, Dealer Relationship Manager CLIA: [id number] Cholesterol 155 <200 mg/dL Triglycerides 133 <150 [...] Results: 65 Units: mg/dL % Change: +10% Medications Medication SIG (Take, Route, Frequency, Duration) Notes Start Date End Date Status Ondansetron HCl 4 MG 1 tab(s) orally tid prn prn Active Vitamin D3 25 MCG (1000 UT) 1 capsule Orally Once a day; Duration: 30 day(s) Active Fluticasone Propionate 50 MCG/ACT as directed in each nostril once a day; Duration: 30 day(s) 12/21/2021 Not-Taking Aspirin 81 81 MG 1 tablet Orally Once a day Active Zinc 50 MG 1 tab(s) orally once a day; Duration: 30 day(s) Not-Taking Lisinopril-hydroCHLOROthi azide 20-25 MG 1 tablet Orally Once a day; Duration: 90 days 09/15/2024 Active Atenolol 100 MG 1 tab(s) orally once a day; Duration: 90 days 11/05/2015 Active LORazepam 0.5 MG 1 tab(s) orally 3 ti mes a day as needed; Duration: 30 day(s) 07/09/2025 Active Rosuvastatin Calcium 10 MG 1 tab(s) orally once a day; Duration: 90 days Active Evista 60 MG 1 tablet Orally Once a day; Duration: 90 days 06/20/2023 Active Sulindac 200 mg TAKE 1 TABLET by robson th twice a day with food; Duration: 30 days Active Omeprazole 40 MG 1 cap(s) orally once a day; Duration: 90 days 05/10/2022 Active amLODIPine Besylate 10 mg 1 tablet orall y once a day; Duration: 90 days Active Immunizations Vaccine Route Administration Date Status Comme nts Tetanus Tdap-Adacel (over 7yrs) Unknown 02/18/2019 Refu sed Prevnar (PCV13) Unknown 02/18/2019 Refused COVID 19 Santy Unknown 01/22/2021 Administered COVID 19 Santy Unknown 08/27/2021 Administered Problems Problem Type SNOMED Code ICD Code Onset Dates Problem Status W/U Status Risk Notes Problem Peripheral vascular disease (589408549) Peripheral vascular disease NOS (443.9) Active confirmed Problem Hypokalemia (15162223) Hypokalemia (E87.6) Active confirmed Problem Essential hypertension (43640664) Essential hypertension (I10) Active confirmed Problem Anxiety (35735632) Anxiety (F41.9) Active confi rmed Problem Dyspepsia (184528469) Dyspepsia (R10.13) Active confirmed Problem 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) Active confirmed Problem Parageusia (523332528) Parageusia (R43.2) Active confirmed Problem Goiter (3345578) Goiter (E04.9) Active confirme d Problem Chronic pain (60922095) Other chronic pain (G89.29) Active confirmed Problem Gastroesophageal reflux disease (disorder) (442094635) Chronic GERD (K21.9) Active confirmed Problem Dyslipidemia (245091548) Dyslipidemia (E78.5) Active confirmed Problem Pure hypercholesterolemia (224185713) Pure hypercholesterolemia (E78.00) Active confirmed Problem Fibrocystic breast changes (90633917) Fibrocystic breast changes, unspecified laterality (N60.19) Active confirmed Problem Screening for malignant neoplasm of breast (203838237) Breast cancer screening by mammogram (Z12.31) Active confirmed Vital Signs Heart Rate 70 /min 05/25/2025 Blood pressure diastolic 76 mm Hg 05/25/2025 Height 67 in 05/25/2025 Blood pressure systolic 132 mm Hg 05/25/2025 Weight 185.4 lbs 05/25/2025 BMI 29.03 kg/m2 05/25/2025 Encounters Encounter Location Date Provider Diagnosis [facility] [address] [facility] [address] [place] [id number] 09/15/2024 Kevin Grijalva Essential hypertensi on I10 ; Pure hypercholesterolemia E78.0 and Pure hypercholesterolemia E78.00 [facility] [address] [facility] [address] [id number] 12/22/2024 J Augustine Grijalva Essential hypertensi on I10 ; 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 ; Other chest pain R07.89 and Screen for colon cancer Z12.11 [facility] [address] [facility] [address] [id number] 05/25/2025 J Augustine Grijalva Essential hypertensi on I10 ; 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 ; Chronic GERD K21.9 ; Hiatal hernia K44.9 ; BMI 29.0-29.9,adult Z68.29 ; Pure hypercholesterolemia E78.00 and Lumbar back pain M54.50 [facility] [address] [facility] [address] [place] [id number] 08/20/2024 Kevin Grijalva Essential hypertensi on I10 [facility] [address] [facility] [address] [id number] 08/28/2024 Kevin Grijalva Chronic GERD K21.9 [facility] [address] [facility] [address], [place] [id number] 10/06/2024 Kevin Grijalva Pure hypercholestero lemia E78.0 [facility] [address] [facility] [address], [place] [id number] 10/09/2024 J Augustine Rudi Upper back pain M54. 9 [facility] [address] [place], [place] [id number] 10/23/2024 J Augustine Rudi Anxiety F41.9 [facility] [address] [place], [place] [id number] 01/16/2025 J Augustine Rudi Essential hypertensi on I10 and Upper back pain M54.9 [facility] [address] [place], [place] [id number] 01/16/2025 J Augustine Rudi Abnormal stress test R94.39 [facility] [address] [place] [id number] 02/04/2025 J Augustine Rudi Essential hypertensi on I10 [facility] [address] [place], [place] [id number] 02/20/2025 J Augustine Rudi Chronic GERD K21.9 [facility] [address] [place] [id number] 03/02/2025 J Augustine Rudi [facility] [address] [place], [place] [id number] 03/05/2025 J Augustine Rudi [facility] [address] [place] [id number] 03/17/2025 J Augustine Rudi Essential hypertensi on I10 [facility] [address] [place] [id number] 03/27/2025 J Augustine Rudi [facility] [address] [place] [id number] 04/22/2025 J Augustine Rudi [facility] [address] [place] [id number] 04/22/2025 J Augustine Rudi Anxiety F41.9 [facility] [address] [place] [id number] 05/14/2025 J Augustine Rudi Essential hypertensi on I10 [facility] [address] [place] [id number] 05/26/2025 Kevin Grijalva [facility] [address] [place] [id number] 06/01/2025 Kevin Grijalva Encounter for screen ing for osteoporosis Z13.820 and Encounter for screening for malignant neoplasm of breast Z12.31 [facility] [address] [place] [id number] 06/16/2025 Kevin Grijalva Essential hypertensi on I10 [facility] [address] [place], [place] [id number] 07/07/2025 Kevin Grijalva Anxiety F41.9 [facility] [address] [facility] [address] [place], [place] [id number] 07/21/2025 Kevin Grijalva Essential hypertensi on I10 Assessments Encounter Date Diagnosis (ICD Code) Assessment Notes Treatment Notes Treatment Clinical Notes Section Notes 08/20/2024 Essential hypertensi on (ICD-10 - I10) 08/28/2024 Chronic GERD (ICD-10 - K21.9) 09/15/2024 Essential hypertensi on (ICD-10 - I10) 09/15/2024 Pure hypercholesterolemia (ICD-10 - E78.0) 10/06/2024 Pure hypercholesterolemia (ICD-10 - E78.0) 10/09/2024 Upper back pain (ICD -10 - M54.9) 12/22/2024 Essential hypertensi on (ICD-10 - I10) 12/22/2024 Guttate psoriasis (ICD-10 - L40.4) 01/16/2025 Abnormal stress test (ICD-10 - R94.39) 02/04/2025 Essential hypertensi on (ICD-10 - I10) 02/20/2025 Chronic GERD (ICD-10 - K21.9) 03/17/2025 Essential hypertensi on (ICD-10 - I10) 05/14/2025 Essential hypertensi on (ICD-10 - I10) 06/01/2025 Encounter for screen ing for osteoporosis (ICD-10 - Z13.820) 06/01/2025 Encounter for screen ing for malignant neoplasm of breast (ICD-10 - Z12.31) 06/16/2025 Essential hypertensi on (ICD-10 - I10) 07/07/2025 Anxiety (ICD-10 - F41.9) 07/21/2025 Essential hypertensi on (ICD-10 - I10) 01/16/2025 Essential hypertensi on (ICD-10 - I10) 05/25/2025 Essential hypertensi on (ICD-10 - I10) 05/25/2025 Guttate psoriasis (ICD-10 - L40.4) 04/22/2025 Anxiety (ICD-10 - F41.9) 10/23/2024 Anxiety (ICD-10 - F41.9) 05/25/2025 Chronic GERD (ICD-10 - K21.9) 01/16/2025 Upper back pain (ICD -10 - M54.9) 12/22/2024 Other chest pain (IC D-10 - R07.89) 09/15/2024 Pure hypercholesterolemia (ICD-10 - E78.00) 12/22/2024 Screen for colon can cer (ICD-10 - Z12.11) 05/25/2025 Hiatal hernia (ICD-1 0 - K44.9) 05/25/2025 BMI 29.0-29.9,adult (ICD-10 - Z68.29) 05/25/2025 Pure hypercholesterolemia (ICD-10 - E78.00) 05/25/2025 Lumbar back pain (IC D-10 - M54.50) Plan Of Treatment Pending Test Test Name Order Date Bone density 06/02/2025 Mammogram 06/01/2025 LC-Sedimentation Rate-Westergren 021 LC-Amylase, Serum 06/28/2021 Next Appt Details Provider Name:Kevin An er, 09/07/2025 10:15:00 AM, [address], [place], [id number], Insurance Providers Payer Name Payer Address Payer Phone Subscriber Number Group Number Insured Name Patient Relationship to Insured Coverage Start Date Coverage End Date [employer] [address] [place] [id number] TAYLOR BURT Self - patient is the insured Medical (General) History Medical History History ICD Code GERD hiatal hernia esophageal stricture COVID 19 Vaccine J&J, 01/22/21 COVID 19 Booster J&J, 08/27/21 COVID 19 infection, Sep 2021 Surgical History Surgery Date(Month/Year) breast surgery x2 Tooth extraction Cologuard - Negative December 2020
== END 2025-07-28 23:59 | disposition home or self-care (01) ==
LOC: RAD 09:42
PROVIDERS: PCP Family Medicine; Visit Provider Family Medicine
DX: Z12.31 Encounter for screening mammogram for malignant neoplasm of breast (principal); R92.323 Mammographic fibroglandular density, bilateral breasts; Z80.3 Family history of malignant neoplasm of breast
CPT/HCPCS: 77063; 77067

== ENCOUNTER 2025-08-13 08:42 | Outpatient (CLI) | payer MEDICARE, SELFPAY ==
--- NOTE | 2025-08-13 08:44 | XR_ITS ---
FINAL REPORT CLINICAL HISTORY: SCREENING, PATIENT STATED AFTER HER TEST THAT SHE HAS OSTEOPENIA AND IS ON RESEDRONATE. COMPARISON: 05/29/2023 FINDINGS: Using L1-4, the bone mineral density of the spine is 1.096 g/cm2, corresponding to T-score of 0.4. Bone mineral density change versus baseline -0.7% Using the left hip, the bone mineral density of the femoral neck is 0.661 g/cm2, corresponding to a T-score of -1.7. Bone mineral density change versus baseline -7.7% Using the right hip, the bone mineral density of the femoral neck is 0.703 g/cm2, corresponding to a T-score of -1.3. Bone mineral density change versus baseline -4.3%. NOTE: T-score: Standard deviation compared with peak bone mass of young adult mean. *Following the recommendations of the International Society of Bone densitometry, classification of hip BMD is based on the lower of two T-scores; total hip or femoral neck. IMPRESSION: Diminished bone mineral density of the bilateral hips consistent with osteopenia. Normal bone mineral density of the lumbar spine. This may be artificially elevated secondary to bony sclerosis. Reviewed, Interpreted and Dictated by Wilfredo Scott MD Transcribed by Serina Faria Authenticated and [facility]
== END 2025-08-13 23:59 | disposition home or self-care (01) ==
LOC: RAD 08:43
PROVIDERS: PCP Family Medicine; Visit Provider Family Medicine
DX: Z13.820 Encounter for screening for osteoporosis (principal); M85.88 Other specified disorders of bone density and structure, other site; Z79.83 Long term (current) use of bisphosphonates
CPT/HCPCS: 77080